=== PATIENT | male | born 1970 | race Hispanic/Latino ===

== ENCOUNTER 2017-04-07 18:27 | Inpatient (IN) | payer OTHER ==
[2017-04-07 18:27] VITALS: BMI 38.0
--- NOTE | 2017-04-07 20:33 | C.PDOC ---
History Of Present Illness 46 year old male with a history of diabetes and CHF presents to the ED with complaints of increasing leg edema for one week. Patient admits to actively using cocaine and smoking a pack of cigarettes a day. He notes a history of chronic back pain for which he uses percocet. Patient has anxiety disorder and uses prazosin. He denies recent travel, fever, chest pain, or shortness of breath. Time Seen by Provider: 04/07/17 19:58 Chief Complaint (Nursing): Lower Extremity Problem/Injury History Per: Patient History/Exam Limitations: no limitations Onset/Duration Of Symptoms: Days (1 week ) Current Symptoms Are (Timing): Still Present Recent travel outside of the [place]: No Additional History Per: Prior Records Past Medical History Reviewed: Historical Data, Nursing Documentation, Vital Signs Vital Signs: Last Vital Signs Temp 97.6 F 04/07/17 18:38 Pulse 104 H 04/07/17 18:38 Resp 18 04/07/17 18:38 BP 111/74 04/07/17 18:38 Pulse Ox 98 04/07/17 21:04 - Medical History PMH: Diabetes, HTN, Hypercholesterolemia - [facility] Procedures EXTRACTION OF ILIAC BONE MARROW, PERCUTANEOUS APPROACH (01/25/17) FUSION T-LUM JT W INTBD FUS DEV, POST APPR P COL, OPEN (01/25/17) MONITOR PERIPHERAL NERVOUS ELECTR ACTIVITY, INTRAOP, MONEY LAUNDERING INVESTIGATOR (01/25/17) RELEASE THORACIC NERVE, OPEN APPROACH (01/25/17) Family History: States: Unknown Family Hx - Social History Hx Alcohol Use: No Hx Substance Use: No - Immunization History Hx Tetanus Toxoid Vaccination: No Hx Influenza Vaccination: Yes Hx Pneumococcal Vaccination: No Review Of Systems Constitutional: Negative for: Fever, Chills Cardiovascular: Negative for: Chest Pain, Palpitations Respiratory: Negative for: Cough, Shortness of Breath Gastrointestinal: Negative for: Nausea, Vomiting, Abdominal Pain, Diarrhea Musculoskeletal: Positive for: Leg Pain (dependent bilateral leg edema ) Physical Exam - Physical Exam Appears: No Acute Distress, Other (Patient is morbidly obese ) Skin: Warm, Dry Head: Atraumatic Eye(s): bilateral: Normal Inspection, EOMI Oral Mucosa: Moist Neck: Other (JVD ) Chest: Symmetrical, No Deformity Cardiovascular: Rhythm Regular Respiratory: Rales (bilateral bases) Gastrointestinal/Abdominal: Soft, No Tenderness, No Distention, No Guarding, No Rebound, Other (Abdomen is obese ) Extremity: Other (extremities are obese. Dependent edema to the knees in the lower extremities. ) Neurological/Psych: Oriented x3, Normal Speech, Normal Cognition ED Course And Treatment - Laboratory Results Result Diagrams: 04/07/17 21:37 04/07/17 21:37 Lab Interpretation: Abnormal (tox+ opiates, benzo's, cocaine, BNP/Trop neg.) ECG: Interpreted By Me ECG Rhythm: Sinus Rhythm ECG Interpretation: Normal Rate From EC O2 Sat by Pulse Oximetry: 98 (room air ) Pulse Ox Interpretation: Normal - Radiology CXR: Interpreted by Me CXR Interpretation: Yes: Other (+ mild CHF) Progress Note: large volume diuresis Reevaluation Time: 00:39 Reassessment Condition: Improved Medical Decision Making Medical Decision Makin: consider CHF or heart failure in pt w ongoing STEVE, obesity, cocaine and cigarette abuse, diabetes w worstening leg dependent edema and weight gain, + JVD on exam. [place] [employer]AT INSTRUCTOR reviewed, Percocet for chronic back pain (lumbar fixation noted on x- rays today) and Xanax for anxiety ? related to cocaine abuse. CTA to r/o PE pending and signed over to [facility] Disposition - Disposition Disposition Time: 01:00 Condition: GOOD Forms: [facility] ([place] Citizen) - Clinical Impression Clinical Impression: Leg edema - Scribe Statement The provider has reviewed the documentation as recorded by the Scribe Viridiana Prater All medical record entries made by the Scribe were at my direction and personally dictated by me. I have reviewed the chart and agree that the record accurately reflects my personal performance of the history, physical exam, medical decision making, and the department course for this patient. I have also personally directed, reviewed, and agree with the discharge instructions and disposition. Physician Patient Turnover Patient Signed Over To: Denver Rios Handoff Comments: follow-up CT and Admit to Dr. Cronin (group exercise manager Medicine)
[2017-04-07 21:45] LABS: BASO # 0.1 K/uL (0.0-0.2); BASO % 0.8 % (0.0-2.0); EOS # 0.3 K/uL (0.0-0.7); EOS % 3.1 % (0.0-4.0); HEMATOCRIT 35.2 % (35.0-51.0); LYMPH # 3.2 K/uL (1.0-4.3); LYMPH % 36.2 % (20.0-40.0); MEAN CELL VOLUME 89.6 fL (80.0-94.0); MEAN CORPUSCULAR HEMOGLOBIN 30.2 pg (27.0-31.0); MEAN CORPUSCULAR HGB CONC 33.6 g/dL (33.0-37.0); MEAN PLATELET VOLUME 8.2 fL (7.2-11.7); MONO # 0.5 K/uL (0.0-0.8); RED CELL DISTRIBUTION WIDTH 14.7 % (11.5-14.5); WHITE BLOOD COUNT 8.7 K/uL (4.8-10.8)
[2017-04-07 21:55] LABS: CHLORIDE 102 mmol/L (98-107); SODIUM 139 mmol/L (132-148)
[2017-04-07 21:56] LABS: POTASSIUM 3.9 mmol/L (3.6-5.2)
[2017-04-07 21:57] LABS: RBC URINE 1 /hpf (0-3); URINE BACTERIA OCC (<OCC); URINE BILIRUBIN NEGATIVE (NEGATIVE); URINE BLOOD NEGATIVE (NEGATIVE); URINE COLOR Yellow (YELLOW); URINE GLUCOSE (UA) NORMAL (Normal); URINE KETONE NEGATIVE (NEGATIVE); URINE LEUKOCYTE ESTERASE NEG Leu/uL (Negative); URINE PROTEIN NEGATIVE (NEGATIVE); URINE UROBILINOGEN NORMAL mg/dL (0.2-1.0); WBC URINE 3 /hpf (0-5)
[2017-04-07 21:58] LABS: ALB/GLOB RATIO 1.1 (1.0-2.1); ALKALINE PHOSPHATASE 89 U/L (38-126); ALT/SGPT 35 U/L (21-72); AST/SGOT 26 U/L (17-59); BILIRUBIN,TOTAL 0.5 mg/dL (0.2-1.3); BLOOD UREA NITROGEN 10 mg/dL (9-20); CALCIUM 8.8 mg/dl (8.6-10.4); CARBON DIOXIDE 27 mmol/L (22-30); GFR AFRICAN-AMERICAN > 60; GLUCOSE,RANDOM 122 mg/dL (75-110); TOTAL PROTEIN 6.4 g/dL (6.3-8.3)
[2017-04-07 21:59] LABS: ALCOHOL SERUM < 10 mg/dl (0-10)
[2017-04-07] MEDS ORDERED: Iodixanol 320 MG/ML 100 ML BOTTLE IV ONE (22:40)
--- NOTE | 2017-04-08 02:13 | CT ---
EXAM: CT Angiography Chest With Intravenous Contrast CLINICAL HISTORY: 46 years old, male; Pain; Chest pain; Prior surgery; Additional info: Chf, elev d-dimer, ? pe TECHNIQUE: Axial computed tomographic angiography images of the chest with intravenous contrast using pulmonary embolism protocol. All CT scans at this facility use one or more dose reduction techniques, viz.: automated exposure control; ma/kV adjustment per patient size (including targeted exams where dose is matched to indication; i.e. head); or iterative reconstruction technique. MIP reconstructed images were created and reviewed. Coronal and sagittal reformatted images were created and reviewed. CONTRAST: 100 mL of [id number] administered intravenously. COMPARISON: No relevant prior studies available. FINDINGS: Pulmonary arteries: Suboptimal enhancement of the pulmonary arteries. No saddle embolus is, or central pulmonary embolism. Smaller peripheral emboli would be difficult to exclude on this examination. Aorta: No acute findings. No thoracic aortic aneurysm. Lungs: Unremarkable. No mass. No consolidation. Pleural space: Unremarkable. No significant effusion. No pneumothorax. Heart: Unremarkable. No cardiomegaly. No significant pericardial effusion. Mediastinum: Small hiatal hernia. Bones/joints: Thoracolumbar surgery with hardware in place. Spinal degenerative changes. Old healed sternal fracture. Correlate clinically. No dislocation. Soft tissues: Unremarkable. Lymph nodes: Unremarkable. No enlarged lymph nodes. IMPRESSION: 1. No CT findings to suggest acute pulmonary embolism. Limited assessment of small peripheral branches do to suboptimal opacification. 2. No acute aortic abnormality. 3. Remainder oh findings as above.
[2017-04-08] MEDS ORDERED: Home Med 1 UNIT (Insulin Lispro [Humalog Kwikpen U-100] 10 UNIT) SQ SCH (07:30)
--- NOTE | 2017-04-08 09:27 | RAD ---
HISTORY: SOB COMPARISON: No prior study. Subsequent CTA of the chest performed 04/08/17 TECHNIQUE: Chest PA and lateral FINDINGS: Examination limited by habitus. LUNGS: Mild bibasilar atelectasis. Please note that chest x-ray has limited sensitivity for the detection of pulmonary masses. PLEURA: No significant pleural effusion identified. No definite pneumothorax . CARDIOVASCULAR: The cardiomediastinal silhouette appears within normal limits of size. OSSEOUS STRUCTURES: No acute osseous abnormality identified. VISUALIZED UPPER ABDOMEN: Unremarkable. OTHER FINDINGS: None. IMPRESSION: Mild bibasilar atelectasis.
[2017-04-08] MEDS: GlipiZIDE 10 mg SR Tab PO SCH ×2 (09:35→18:03)
[2017-04-08] MEDS ORDERED: LIRAGLUTIDE 3 MG SQ SCH ×2 (10:00)
[2017-04-08] MEDS ORDERED: Home Med 1 UNIT (Metformin [Glucophage] 1,000 MG) PO SCH (10:00)
[2017-04-08] MEDS: (Novolog) Insulin Aspart, Recombinant 100 u/ml 10 ml vial SC SCH ×3 (11:54→21:31)
[2017-04-08] MEDS: ceFAZolin IV 1 gm in Dextrose 1 GM/50 ML BAG IVPB SCH ×2 (11:55→19:47)
[2017-04-09 02:05] VITALS: RESP 20
[2017-04-09] MEDS: ceFAZolin IV 1 gm in Dextrose 1 GM/50 ML BAG IVPB SCH ×2 (04:31→12:13)
[2017-04-09 07:58] VITALS: BP 117/78; PULSE 77; TEMP 98; O2SAT 97
[2017-04-09] MEDS: (Novolog) Insulin Aspart, Recombinant 100 u/ml 10 ml vial SC SCH ×2 (08:15→12:13)
[2017-04-09] MEDS: GlipiZIDE 10 mg SR Tab PO SCH (10:34)
--- NOTE | 2017-04-09 11:34 | HP ---
HISTORY OF PRESENT ILLNESS: The patient is a 46-year-old male with a chief complaint of swelling of lower extremity and edema. The patient . The patient has diabetes. The patient has hypertension and leg pain. PHYSICAL EXAMINATION: GENERAL: The patient is awake, alert, and oriented. VITAL SIGNS: Temperature 98, pulse 90. HEENT: Within normal limits. NECK: Supple. CHEST: Symmetrical. HEART: Regular. ABDOMEN: Soft. EXTREMITIES: There is a 2+ edema. There is slight redness of the right leg suspicious for cellulitis. IMPRESSION: Edema of lower extremity, gabapentin induced, rule out nephrotic syndrome, rule out DVT. The patient to get venous Doppler support . Margot Patton MD
--- NOTE | 2017-04-10 23:52 | CARD ---
APPROVED REPORT EKG Measurement Heart [id number] <Conclusion> Normal sinus rhythm Normal ECG
--- NOTE | 2017-04-11 12:07 | VASCLAB ---
PROCEDURE: Lower Extremity Venous Duplex Exam. HISTORY: b/l lower exstremity swelling PRIORS: None. TECHNIQUE: Bilateral common femoral, femoral, popliteal and posterior tibial, peroneal and great saphenous veins were evaluated. Flow was assessed with color Doppler, compressibility, assessment of phasic flow and augmentation response. Report prepared by Lavelle Kendrick, CARA, RVT FINDINGS: RIGHT: 1. Common Femoral Vein: 1.1. Compressibility - Fully compressible: Thrombus - None : Flow - Phasic: Augmentation -Normal: Reflux - None. 2. Femoral Vein: 2.1. Compressibility - Fully compressible: Thrombus - None : Flow - Phasic: Augmentation -Normal: Reflux - None. 3. Popliteal Vein: 3.1. Compressibility - Fully compressible: Thrombus - None : Flow - Phasic: Augmentation -Normal: Reflux - None. 4. Posterior Tibial Vein: 4.1. Compressibility - Fully compressible: Thrombus - None: Flow - Phasic: Augmentation -Normal: Reflux - None. 5. Peroneal Vein: 5.1. Compressibility - Fully compressible: Thrombus - None: Flow - Phasic: Augmentation -Normal: Reflux - None. 6. Great Saphenous Vein: 6.1. Compressibility - Fully compressible: Thrombus - None: Flow - Phasic: Augmentation - Normal: Reflux - None. LEFT: 1. Common Femoral Vein: 1.1. Compressibility - Fully compressible: Thrombus - None: Flow - Phasic: Augmentation -Normal: Reflux - None. 2. Femoral Vein: 2.1. Compressibility - Fully compressible: Thrombus - None: Flow - Phasic: Augmentation -Normal: Reflux - None. 3. Popliteal Vein: 3.1. Compressibility - Fully compressible: Thrombus - None : Flow - Phasic: Augmentation -Normal: Reflux - None. 4. Posterior Tibial Vein: 4.1. Compressibility - Fully compressible: Thrombus - None: Flow - Phasic: Augmentation -Normal: Reflux - None. 5. Peroneal Vein: 5.1. Compressibility - Fully compressible: Thrombus - None: Flow - Phasic: Augmentation -Normal: Reflux - None. 6. Great Saphenous Vein: 6.1. Compressibility - Fully compressible: Thrombus - None: Flow - Phasic: Augmentation - Normal: Reflux - None. OTHER FINDINGS: Right: None significant. Left: None significant. IMPRESSION: Right: No evidence of deep or superficial vein thrombosis of the right lower extremity. Normal valve function noted of the right side. Left: No evidence of deep or superficial vein thrombosis of the left lower extremity. Normal valve function noted of the left side.
== END 2017-04-09 15:30 | disposition home or self-care (01) | DRG 463 ==
LOC: C.ER 18:27 → C.6T 04-08 02:24
PROVIDERS: ADMIT Internal Medicine Pulmonary Disease; ATTEND Internal Medicine Pulmonary Disease
DX: R60.0 Localized edema (principal); I50.9 Heart failure, unspecified; I11.0 Hypertensive heart disease with heart failure; F14.10 Cocaine abuse, uncomplicated; T42.6X5A Adverse effect of other antiepileptic and sedative-hypnotic drugs, initial encounter; G89.29 Other chronic pain; F41.9 Anxiety disorder, unspecified; M54.9 Dorsalgia, unspecified; E11.9 Type 2 diabetes mellitus without complications; G47.33 Obstructive sleep apnea (adult) (pediatric); E66.9 Obesity, unspecified; F17.210 Nicotine dependence, cigarettes, uncomplicated